=== PATIENT | male | born 1995 | race Two or more races ===

== ENCOUNTER 2020-10-05 22:44 | Emergency (ER) | payer SELFPAY ==
--- NOTE | 2020-10-05 23:21 | NUR ---
PATIENT NOT IN THE LOBBY. CALLED 3 TIMES NO ANSWER.
== END 2020-10-05 23:22 | disposition left against medical advice (07) ==
LOC: ED 23:00
DX: R68.89 Other general symptoms and signs (principal); Z53.21 Procedure and treatment not carried out due to patient leaving prior to being seen by health care provider